=== PATIENT | female | born 1965 | race Caucasian/White ===

== ENCOUNTER → 2022-06-12 | Outpatient (CLI) | payer BC | LOC: KOH-I 10:16 | DX: S92.421D Displaced fracture of distal phalanx of right great toe, subsequent encounter for fracture with routine healing (principal) | CPT/HCPCS: 73660 ==

== ENCOUNTER → 2022-07-15 | Outpatient (CLI) | payer BC | LOC: KOH-I 10:00 | DX: S92.421A Displaced fracture of distal phalanx of right great toe, initial encounter for closed fracture (principal) | CPT/HCPCS: 73660 ==